=== PATIENT | male | born 1970 | race Caucasian/White ===

== ENCOUNTER → 2017-04-01 19:53 | Outpatient (CLI) | payer MEDICAID | END | disposition home or self-care (01) | LOC: D.SLEEP 19:53 | DX: G47.33 Obstructive sleep apnea (adult) (pediatric) (principal) ==

== ENCOUNTER 2020-11-08 11:40 | Day surgery (SDC) | payer OTHER ==
[~2020-11-08] VITALS: Ht 172.7 cm; Wt 134.5 kg
--- NOTE | ~2020-11-08 | OP ---
PATIENT NAME: ANGEL ALLEN MEDICAL RECORD: [id number] :70 LOCATION:[facility] ADMISSION DATE: SURGEON: SMITH FORBES MD DATE OF OPERATION: 11/08/2020 PROCEDURE: Upper endoscopy. PREOPERATIVE DIAGNOSIS: Abdominal pain. MEDICATIONS: Propofol per anesthesia. Upper endoscopy was performed. The endoscope was advanced through the mouth and advanced to the second part of the duodenum. The proximal and mid esophagus were normal. In the distal esophagus was a linear esophageal ulcer. In the gastric body was erythema consistent with gastritis. Random gastric biopsies were taken. The entire examined duodenum was normal. The patient tolerated the procedure well. There were no immediate complications. FINAL DIAGNOSES: Linear esophageal ulcer, gastritis, and duodenum normal. PLAN: Check histology results. Advance diet. Return to GI office. I will write a prescription for Protonix for this patient and send it with him at discharge and also he has been advised to avoid NSAIDs. TRANSINT:[id number] Voice Confirmation ID: [id number] DOCUMENT ID: [id number] SMITH FORBES MD CC: [id number] DICTATION DATE: 11/08/20 142 COST ESTIMATING CLERK: 11/09/20 0049 [facility] 11/08/20 [id number] [place] [address]
[2020-11-08 12:14] LABS: BASOPHILS 0.5 % (0-2); EOSINOPHILS 7.7 % (0-7); HEMATOCRIT 42.5 % (42.0-54.0); HEMOGLOBIN 14.2 g/dL (13.5-17.5); IMMATURE GRANULOCYTES 0.2 % (0-5); LYMPHOCYTE ABS# 1.11 10x3/uL (1.32-3.57); LYMPHOCYTES 27.7 % (15-50); MCH 28.9 pg (26.0-34.0); MCHC 33.4 g/dL (31.0-37.0); MCV 86.4 fL (80.0-100.0); MONOCYTES 6.2 % (2-11); NEUTROPHIL ABS# 2.31 10x3/uL (1.78-5.38); NEUTROPHILS 57.7 % (40-80); PLATELET COUNT 305 10x3/uL (130-400); RBC 4.92 10x6/uL (4.20-6.10); RDW 12.9 % (11.5-14.5)
[2020-11-08 12:29] LABS: ALBUMIN 3.6 g/dL (3.4-5.0); ANION GAP 7.2 mmol/L (8-16); BILIRUBIN - TOTAL 0.68 mg/dL (0.2-1.3); CALCIUM 8.5 mg/dL (8.5-10.1); CARBON DIOXIDE 30.8 mmol/L (21.0-32.0); CREATININE - SERUM 1.2 mg/dL (0.6-1.3)
[2020-11-08] MEDS ORDERED: COZAAR25 MG PO (12:47)
[2020-11-08] MEDS ORDERED: IBUPROFEN800 MG PO (12:48)
[2020-11-08] MEDS ORDERED: ZOFRAN4 MG PO (12:49)
[2020-11-08] MEDS ORDERED: ALLEGRA D PO (12:50)
[2020-11-08] MEDS ORDERED: NASACORT10.8 ML NASAL (12:50)
[2020-11-08 13:19] VITALS: Ht 172.7 cm; Wt 134.5 kg
--- NOTE | 2020-11-08 14:52 | NUR ---
DC INSTRUCTIONS GIVEN TO PT. STATES UNDERSTANDING. DC'D IV CATH FULLY INTACT. WILL DC SHORTLY
--- NOTE | 2020-11-08 14:55 | NUR ---
PT LEFT UNIT VIA WC AT 1456
== END 2020-11-08 14:56 | disposition home or self-care (01) ==
LOC: D.OPS 11:40
PROVIDERS: ATTEND Internal Medicine Gastroenterology
DX: R10.10 Upper abdominal pain, unspecified (principal); K22.10 Ulcer of esophagus without bleeding; K29.70 Gastritis, unspecified, without bleeding; R12 Heartburn

== ENCOUNTER 2020-12-13 09:56 | Day surgery (SDC) | payer OTHER ==
[~2020-12-13] VITALS: Ht 172.7 cm; Wt 133.6 kg
--- NOTE | ~2020-12-13 | OP ---
PATIENT NAME: ANGEL ALLEN MEDICAL RECORD: [id number] :70 LOCATION:[facility] ADMISSION DATE: SURGEON: SMITH FORBES MD DATE OF OPERATION: 12/13/2020 PREOPERATIVE DIAGNOSIS: Screening colonoscopy. Propofol per anesthesia. Colonoscopy was performed. The colonoscope was inserted through the rectum and advanced to the cecum, identified by the ileocecal valve and appendiceal orifice. The quality of the prep was good. There were a few sigmoid diverticula visualized. There was a small ascending colon polyp. This was removed with cold biopsy forceps. There was a distal small sigmoid polyp. This was also removed with cold biopsy forceps. The patient tolerated the procedure well. There were no immediate complications. FINAL DIAGNOSES: Two small polyps removed with cold biopsy forceps. Few sigmoid diverticula. PLAN: Advance diet. Check histology results. Return to GI office. TRANSINT:[id number] Voice Confirmation ID: [id number] DOCUMENT ID: [id number] SMITH FORBES MD CC: [id number] DICTATION DATE: 12/13/20 142 JEWEL HOLE FINISH OPENER: 12/14/20 0004 [facility] 12/13/20 [id number] [place] [address]
[~2020-12-13 09:56] MED LIST: ALLEGRA D PO; COZAAR25 MG PO; IBUPROFEN800 MG PO; NASACORT10.8 ML NASAL; ZOFRAN4 MG PO
[2020-12-13 10:20] LABS: BASOPHILS 0.9 % (0-2); EOSINOPHILS 9.1 % (0-7); HEMATOCRIT 46.9 % (42.0-54.0); HEMOGLOBIN 15.4 g/dL (13.5-17.5); IMMATURE GRANULOCYTES 0.2 % (0-5); LYMPHOCYTE ABS# 0.95 10x3/uL (1.32-3.57); LYMPHOCYTES 22.1 % (15-50); MCH 28.7 pg (26.0-34.0); MCHC 32.8 g/dL (31.0-37.0); MCV 87.3 fL (80.0-100.0); MEAN PLATELET VOLUME 9.4 fL (7.4-10.4); NEUTROPHIL ABS# 2.48 10x3/uL (1.78-5.38); NEUTROPHILS 57.7 % (40-80); PLATELET COUNT 328 10x3/uL (130-400); RBC 5.37 10x6/uL (4.20-6.10); RDW 12.9 % (11.5-14.5); WBC 4.3 10x3/uL (4.8-10.8)
[2020-12-13 10:30] LABS: ALBUMIN 3.8 g/dL (3.4-5.0); ANION GAP 9.9 mmol/L (8-16); BILIRUBIN - TOTAL 0.74 mg/dL (0.2-1.3); CALCIUM 8.9 mg/dL (8.5-10.1); CREATININE - SERUM 1.2 mg/dL (0.6-1.3); POTASSIUM - SERUM 3.9 mmol/L (3.5-5.1); PROTEIN - SERUM 7.6 g/dL (6.4-8.2)
[2020-12-13] MEDS ORDERED: PROTONIX40 MG PO (12:32)
[2020-12-13 12:35] VITALS: Ht 172.7 cm; Wt 133.6 kg
--- NOTE | 2020-12-13 19:54 | NUR ---
1500 IV REMOVED AND PRESURE HELD. INSTRUCTIONS GIVEN
== END 2020-12-13 15:35 | disposition home or self-care (01) ==
LOC: D.OPS 09:56
PROVIDERS: ATTEND Internal Medicine Gastroenterology
DX: Z12.11 Encounter for screening for malignant neoplasm of colon (principal); K57.30 Diverticulosis of large intestine without perforation or abscess without bleeding; K63.5 Polyp of colon; R10.10 Upper abdominal pain, unspecified; R12 Heartburn